=== PATIENT | male | born 1945 | race Caucasian/White ===

== ENCOUNTER 2020-08-09 07:57 | Inpatient (IN) | payer OTHER ==
[2020-08-09] VITALS (21 sets, daily range): BP systolic 52–77; BP diastolic 30–56
[~2020-08-09] VITALS: Ht 175.3 cm; Wt 76.0 kg
--- NOTE | 2020-08-09 08:05 | NUR ---
TRACH PATIENT BROUGHT IN FROM CUSTODIAL. PLACED PATIENT ON SAME SETTINGS OF: VT 450, CMV 12, FIO2 100%, PEEP +5.
[2020-08-09 08:29] LABS: ARTERIAL BLOOD GAS PH 7.235 (7.35-7.45)
[2020-08-09 08:31] LABS: ABG BASE EXCESS -5.7 mmol/L (-2.0-2.0)
--- NOTE | 2020-08-09 08:36 | NUR ---
NO URINE IN GUTIÉRREZ TUBING. SEPSIS ASSUMED.
[2020-08-09 08:45] LABS: HEMATOCRIT 40.2 % (42.0-52.0); MEAN CELL VOLUME 112.3 fl (80.0-94.0); MEAN CORPUSCULAR HGB 31.8 pg (27.0-31.0); MEAN CORPUSCULAR HGB CONC 28.4 g/dl (33.0-37.0); MEAN PLATELET VOLUME 12.6 fl (9.6-12.3); NUCLEATED RED BLOOD CELL 0.2 10*3/uL (0.0-0.0); NUCLEATED RED BLOOD CELL 0.6 % (0.0-0.0); PLATELET COUNT AUTOMATED 216 10*3/uL (130-400); RED BLOOD COUNT 3.58 10*6/uL (4.50-5.90); RED CELL DISTRI WIDTH 15.2 % (0-14.5); WHITE BLOOD COUNT 29.7 10*3/uL (4.8-10.8)
[2020-08-09 08:55] LABS: ACT PARTIAL THROMBO TIME 35.1 SECONDS (20.0-32.1); INTERNATIONAL NORM RATIO 1.9 (2.0-3.5)
[2020-08-09 09:01] LABS: ALBUMIN 1.6 gm/dl (3.1-4.5); CREATININE 1.47 mg/dL (0.70-1.30); POTASSIUM 5.8 mmol/L (3.5-5.1); TOTAL PROTEIN 7.6 gm/dL (6.4-8.2)
[2020-08-09 09:11] LABS: PLATELET SUFFICIENCY NORMAL (NORMAL); POLYCHROMASIA SLIGHT; TOTAL CELLS COUNTED 100 #CELLS
[2020-08-09 09:12] LABS: ROULEAUX SLIGHT
--- NOTE | 2020-08-09 10:03 | NUR ---
LEVOPHED NOW TITRATED UP TO 12MCG DOSE DUE TO PERSISTENT HYPOTENSION ON 8MCG DOSE.
--- NOTE | 2020-08-09 10:03 | NUR ---
NO URINE OUTPUT SO FAR.
--- NOTE | 2020-08-09 10:13 | NUR ---
PT'S DAUGHTER BART CALLS FROM 2 HOURS OUT OF TOWN ASKING IF SHE CAN COME SEE PT. I DID NOW GIVE PERMISSION FOR HER TO SEE HER FATHER IN THE E.D. IF SHE ARRIVES BEFORE HIS ADMISSION AND JP GRESHAM, [facility] DIRECTOR GIVES PERMISSION FOR HIM TO BE SEEN IN [facility] IF THEY ARRIVES AFTER ADMISSION. I WILL PROVIDE THIS INFO IN REPORT.
--- NOTE | 2020-08-09 11:20 | NUR ---
LEVOPHED AT MAXIMUM DOSE, 3RD LITER SALINE INFUSING, LACTIC ACID NOW RETURNS 11.9. DR WILKINS MADE AWARE.
--- NOTE | 2020-08-09 11:34 | NUR ---
NO URINE OUTPUT, BP REMAINS ESSENTIALLY THE SAME DESPITE LEVOPHED.
--- NOTE | 2020-08-09 12:25 | NUR ---
4TH LITER SALINE H8UNG NOW, 3000 IN, ZERO URINE OUTPUT, NO CHANGE IN BLOOD PRESSURE, LEVOPHED AT 12MCG, NO CHANGE IN CONDITION.
--- NOTE | 2020-08-09 13:37 | NUR ---
PT'S DAUGHTER BART NOW CALLS AGAIN TO INQUIRE ON PT'S CONDITION AND STATES THEY HAVE NOT LEFT HOME YET. NO CHANGE IN PT CONDITION.
--- NOTE | 2020-08-09 14:49 | NUR ---
DR GONZALEZ NOW COMPLETES INSERTION OF CENTRAL LINE VIA LEFT I.J. ROUTE AND XRAY TO BEDSIDE TO VERIFY PLACEMENT. DR GONZALEZ APPEARS TO HAVE TITRATED THE LEVOPHED TO 14MCG FROM 12 BUT BP HAS NOW DROPPED TO 62/40 DESPITE LEVOPHED, VASOPRESSIN AND 4 LITERS SALINE BOLUSED. NO URINARY OUTPUT.
--- NOTE | 2020-08-09 14:53 | NUR ---
DR CALVO MADE AWARE OF ALL THESE NEGATIVE FINDINGS NOTED ABOVE AND SHE WILL UPDATE DR GONZALEZ.
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
--- NOTE | 2020-08-09 16:12 | NUR ---
ROOM ASSIGNED ICU, IT IS UNCLEAR IF DR GONZALEZ WANTS TO INSERT AN ART-LINE HERE OR ICU BUT HE STATES HE WILL GET BACK TO ME WOITH THIS INFO.
--- NOTE | 2020-08-09 16:22 | NUR ---
STILL AWAITING EPI DRIP FROM PHARMACY. CALLED, SENDING NOW.
--- NOTE | 2020-08-09 16:57 | NUR ---
ICU NOW INFORMS ME THEY WOULD LIKE PT BROUGHT TO ICU AT THIS TIME. BP 54/33, PULSE 70.
--- NOTE | 2020-08-09 17:00 | NUR ---
ASYSTOLE SHOWS ON MONITOR NOW. CODE BLUE ANNOUNCED, REMAINDER OF DOCUMENTATION WILL BE REFLECTED ON CODE RECORD.
[2020-08-09 17:29] LABS: ARTERIAL BLOOD GAS PH 7.093 (7.35-7.45)
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
--- NOTE | 2020-08-09 20:15 | NUR ---
PATIENT TRANSFERRED TO [facility] AT THIS TIME VIA CART WITH SECURITY.
== END 2020-08-09 20:37 | disposition expired | DRG 698 ==
LOC: ED 07:57 → EDHOLD 10:05 → ICCU 15:15 → EDHOLD 15:15
PROVIDERS: Emergency Medicine; ADMIT Student in an Organized Health Care Education/Training Program; ATTEND Student in an Organized Health Care Education/Training Program
PROC: 05HY33Z Insertion of Infusion Device into Upper Vein, Percutaneous Approach (ICD-10-PCS; principal; 2020-08-09)
PROC: 5A1935Z Respiratory Ventilation, Less than 24 Consecutive Hours (ICD-10-PCS; principal; 2020-08-09)
PROC: 5A12012 Performance of Cardiac Output, Single, Manual (ICD-10-PCS; principal; 2020-08-09)
PROC: B54NZZA Ultrasonography of Left Upper Extremity Veins, Guidance (ICD-10-PCS; principal; 2020-08-09)
DX: T83.518A Infection and inflammatory reaction due to other urinary catheter, initial encounter (principal); A41.9 Sepsis, unspecified organism; L89.154 Pressure ulcer of sacral region, stage 4; R65.21 Severe sepsis with septic shock; E43 Unspecified severe protein-calorie malnutrition; N17.0 Acute kidney failure with tubular necrosis; N39.0 Urinary tract infection, site not specified; E87.2 Acidosis; D68.9 Coagulation defect, unspecified; Y84.6 Urinary catheterization as the cause of abnormal reaction of the patient, or of later complication, without mention of misadventure at the time of the procedure; E87.5 Hyperkalemia; R74.0 Nonspecific elevation of levels of transaminase and lactic acid dehydrogenase [LDH]; E83.42 Hypomagnesemia; Z20.828 Contact with and (suspected) exposure to other viral communicable diseases; I46.9 Cardiac arrest, cause unspecified; R09.02 Hypoxemia; I10 Essential (primary) hypertension; E78.5 Hyperlipidemia, unspecified; E11.65 Type 2 diabetes mellitus with hyperglycemia; Z79.4 Long term (current) use of insulin; Y92.89 Other specified places as the place of occurrence of the external cause; Z87.820 Personal history of traumatic brain injury; Z93.1 Gastrostomy status; Z93.0 Tracheostomy status; Z68.24 Body mass index [BMI] 24.0-24.9, adult